=== PATIENT | female | born 1980 | race Caucasian/White ===

== ENCOUNTER 2020-04-02 20:24 | Emergency (ER) | payer MEDICAID, SELFPAY ==
[~2020-04-02] VITALS: Ht 154.9 cm; Wt 63.5 kg
[2020-04-02 20:26] VITALS: BP 139/84; Ht 154.9 cm; Wt 63.5 kg
== END 2020-04-02 20:55 | disposition left against medical advice (07) ==
LOC: ED 20:24
DX: Z53.21 Procedure and treatment not carried out due to patient leaving prior to being seen by health care provider (principal)